=== PATIENT | female | born 1965 | race Caucasian/White ===

== ENCOUNTER 2016-09-26 19:03 | Emergency (ER) | payer BC ==
[~2016-09-26] VITALS: Ht 167.6 cm; Wt 68.6 kg
[~2016-09-26 19:03] MED LIST: CLONAZEPAM1 MG PO; DULOXETINE HCL30 MG PO; ENDOCET 5-3251 EACH PO; FUROSEMIDE40 MG PO; HYDROXYCHLOROQ200 MG PO; LEVOTHYROXINE50 MCG PO; PEPCID40 MG PO; PROAIR HFA8.5 GM IH; SYMBICORT60 INHALAT IH; VITAMIN D22000 UNIT PO
[2016-09-26] MEDS ORDERED: KEFLEX500 MG PO (22:58)
== END 2016-09-26 23:08 | disposition home or self-care (01) ==
LOC: EME 19:03
PROC: 0HQGXZZ Repair Left Hand Skin, External Approach (ICD-10-PCS; principal; 2016-09-26)
DX: S61.012A Laceration without foreign body of left thumb without damage to nail, initial encounter (principal); F41.1 Generalized anxiety disorder; W27.2XXA Contact with scissors, initial encounter; Z86.718 Personal history of other venous thrombosis and embolism; Z91.040 Latex allergy status; Z88.2 Allergy status to sulfonamides; Z88.0 Allergy status to penicillin
CPT/HCPCS: 99281; 99284; J2060

== ENCOUNTER 2017-06-29 19:06 | Observation (INO) | payer BC ==
[~2017-06-29] VITALS: Ht 165.1 cm; Wt 74.0 kg
[~2017-06-29 19:06] MED LIST changes: +KEFLEX500 MG PO
[2017-06-29 19:35] LABS: HEMATOCRIT 44.3 % (36.0-46.0); HEMOGLOBIN 15.6 G/DL (11.9-15.5); MCH 31.2 PG (29.0-34.0); MCHC 35.2 G/DL (30.0-36.0); MCV 88.6 FL (83-99); PLATELET COUNT 295 K/uL (156-360); RBC DIS.WIDTH-CV 12.2 % (11.8-14.6); RBC DIS.WIDTH-SD 39.5 % (39-53)
[2017-06-29 19:50] LABS: ALBUMIN 4.3 g/dL (3.2-4.8); CHLORIDE 99 mEq/L (99-109); POTASSIUM 4.2 mEq/L (3.7-5.4); SODIUM 139 mEq/L (136-147)
[2017-06-29 19:52] LABS: GLUCOSE 104 mg/dL (70-99); TOTAL PROTEIN 7.7 g/dL (6.4-8.3)
[2017-06-29 19:54] LABS: TOTAL BILIRUBIN 0.4 mg/dL (0.0-1.0)
[2017-06-29 19:56] LABS: ALKALINE PHOSPHATASE 101 IU/L (3-129); GFR ESTIMATE (CALCULATED) > 59 mL/min/
[2017-06-29 19:57] LABS: AST (GOT) 29 IU/L (2-34); UREA NITROGEN (BUN) 16 mg/dL (9-23)
[2017-06-29 19:59] LABS: ALT (GPT) 19 IU/L (3-49)
[2017-06-29 20:04] LABS: QUANTITATIVE HCG 7.7 MIU/ML
[2017-06-29 21:52] LABS: APPEARANCE SL.HAZY ((CLEAR)); BILIRUBIN NEGATIVE; BLOOD NEGATIVE; COLOR YELLOW ((YELLOW)); GLUCOSE (STRIP) NEGATIVE; KETONES NEGATIVE; LEUKOCYTES NEGATIVE; NITRITE NEGATIVE; PROTEIN (STRIP) NEGATIVE; SPECIFIC GRAVITY 1.017 (1.000-1.030); UROBILINOGEN 0.2 MG/DL (0.2-1.0)
[2017-06-29 21:55] LABS: BACTERIA NONE SEEN /HPF; EPITHELIAL CELLS NONE SEEN /HPF; MUCUS TRACE /LPF; RED BLOOD CELLS 0-5 /HPF (0-5); UCUL ADDED? NO; WHITE BLOOD CELLS 0-5 /HPF (0-5)
[2017-06-29 23:36] LABS: C-REACTIVE PROTEIN 3.5 MG/L (0-10)
[2017-06-30 03:18] LABS: APPEARANCE CLEAR/COLORLESS; CSF TUBE NUMBER TUBE #4; RED CELL COUNT 0 /MM^3 (0-1); WHITE CELL COUNT 0 /MM^3 (0-5)
[2017-06-30 05:35] LABS: CSF PROTEIN 45 mg/dL (15-45)
[2017-06-30 05:41] LABS: GLUCOSE, CSF 64 mg/dL (40-80)
[2017-06-30 06:19] VITALS: BP 103/73
== END 2017-06-30 06:30 | disposition home or self-care (01) ==
LOC: EME 19:06 → EDOF 06-30 05:24 → ENRESERV 06-30 05:24 → CANRESERV 06-30 05:41 → ENRESERV 06-30 05:41 → EDOF 06-30 06:30
PROVIDERS: Physician Assistant
DX: R51 Headache (principal); H81.09 Meniere's disease, unspecified ear; M32.9 Systemic lupus erythematosus, unspecified; Z79.899 Other long term (current) drug therapy; Z92.25 Personal history of immunosuppression therapy; J44.9 Chronic obstructive pulmonary disease, unspecified; G40.909 Epilepsy, unspecified, not intractable, without status epilepticus; E03.9 Hypothyroidism, unspecified; Z90.49 Acquired absence of other specified parts of digestive tract; Z88.0 Allergy status to penicillin; Z88.1 Allergy status to other antibiotic agents; Z88.2 Allergy status to sulfonamides; Z91.040 Latex allergy status
CPT/HCPCS: 70450; 70553; 80053; 81003; 82945; 84157; 84702; 85027; 85652; 86140; 87070; 87205; 89051; 99281; 99285; G0378; J2060; J2405; J3010; J7030